=== PATIENT | female | born 1990 ===

== ENCOUNTER 2022-02-24 20:26 | Emergency (ER) | payer SELFPAY ==
[2022-02-25] MEDS ORDERED: SODIUM CHLORIDE 0.9% 1000 ML 1,000 ML IV ONE (06:38)
--- NOTE | 2022-02-25 07:09 | XRay Report ---
CHEST 1 VIEW 02/25/2022 5:51 AM INDICATION / CLINICAL INFORMATION: Syncope. COMPARISON: None available. FINDINGS: SUPPORT DEVICES: None. HEART / MEDIASTINUM: No significant abnormality. LUNGS / PLEURA: No significant pulmonary abnormality. No significant pleural effusion. No pneumothora x. ADDITIONAL FINDINGS: No significant additional findings. IMPRESSION: 1. No acute abnormality of the chest. Signer Name: Vaughn Fortune MD Signed: 02/25/2022 7:05 AM Workstation Name: [id number]
[2022-02-25 07:15] LABS: Basophils % (Auto) 0.3 % (0.0-1.8); Eosinophils # (Auto) 0.2 K/mm3 (0.0-0.4); Eosinophils % (Auto) 2.3 % (0.0-4.3); Hematocrit 33.2 % (30.3-42.9); Hemoglobin 11.7 gm/dl (10.1-14.3); Lymphocytes # (Auto) 2.9 K/mm3 (1.2-5.4); Lymphocytes % (Auto) 32.2 % (13.4-35.0); Mean Corpuscular HGB Conc 35 % (30-34); Mean Corpuscular Volume 88 fl (79-97); Monocytes # (Auto) 0.6 K/mm3 (0.0-0.8); Monocytes % (Auto) 6.3 % (0.0-7.3); Platelet Count 198 K/mm3 (140-440); Red Blood Count 3.77 M/mm3 (3.65-5.03); Red Cell Distribution Width 13.7 % (13.2-15.2)
[2022-02-25 07:32] LABS: Alanine Aminotransferase 28 units/L (7-56); Albumin 4.4 g/dL (3.9-5); Blood Urea Nitrogen 7 mg/dL (7-17); Calcium 9.2 mg/dL (8.4-10.2); Hemolysis Index 6
[2022-02-25 07:35] LABS: BUN/Creatinine Ratio 12; Creatine Kinase MB < 1.0 ng/mL (0.0-4.0)
[2022-02-25 08:16] VITALS: BP 101/70
--- NOTE | 2022-02-25 09:41 | Cat Scan Report ---
CT HEAD WITHOUT CONTRAST INDICATION / CLINICAL INFORMATION: syncope. TECHNIQUE: All CT scans at this location are performed using CT dose reduction for ALARA by means of automated exposure control. COMPARISON: None available. FINDINGS: HEMORRHAGE: None. EXTRA-AXIAL SPACES: Normal in size and morphology for the patient's age. VENTRICULAR SYSTEM: Normal in size and morphology for the patient's age. CEREBRAL PARENCHYMA: No significant abnormality. No acute territorial infarct. MIDLINE SHIFT / HERNIATION: None. CEREBELLUM / BRAINSTEM: No significant abnormality. ORBITS: Normal as visualized. SOFT TISSUES: No significant abnormality. SKULL: No significant abnormality. PARANASAL SINUSES / MASTOID AIR CELLS: Normal as visualized. ADDITIONAL FINDINGS: None. IMPRESSION: 1. No acute intracranial abnormality. Signer Name: Eriberto Simms MD Signed: 02/25/2022 9:37 AM Workstation Name: [id number]
[2022-02-25 10:45] LABS: Color,Urine Straw (Yellow)
[2022-02-25 10:57] LABS: Bacteria,Urine 1+ /HPF (Negative)
[2022-02-25 11:01] LABS: HCG Qualitative,Urine Negative (Negative)
--- NOTE | 2022-02-25 11:06 | Emergency Department Report ---
ED Syncope HPI - General Chief Complaint: Syncope Stated Complaint: DIZZINESS/FEELING FAINT Time Seen by Provider: 02/25/22 06:37 Source: patient Exam Limitations: language barrier - History of Present Illness Initial Comments: 31 YR OLD FEMALE PRESENTS TO ED W/ COMPLAINT OF DIZZINESS & FAINTIN SPELLS X 15 DAYS Timing/Prior Episodes: recent history Precipitating Factors: Positive: lightheadedness Context: activity Loss of Consciousness: no loss of consciousness Current Symptoms: back to normal, dizziness, lightheadedness - Related Data Allergies/Adverse Reactions: Allergies No Known Allergies Allergy (Unverified 02/24/22 21:08) ED Review of Systems ROS: Stated complaint: DIZZINESS/FEELING FAINT Other details as noted in HPI Constitutional: denies: chills, fever Eyes: denies: eye pain, eye discharge, vision change ENT: denies: ear pain, throat pain Respiratory: denies: cough, shortness of breath, wheezing Cardiovascular: denies: chest pain, palpitations Endocrine: no symptoms reported Gastrointestinal: denies: abdominal pain, nausea, diarrhea Genitourinary: denies: urgency, dysuria, discharge Musculoskeletal: denies: back pain, joint swelling, arthralgia Skin: denies: rash, lesions Neurological: denies: headache, weakness, paresthesias Psychiatric: denies: anxiety, depression Hematological/Lymphatic: denies: easy bleeding, easy bruising ED Past Medical Hx - Past Medical History Previous Medical History?: No Hx Hypertension: No - Surgical History Past Surgical History?: No ED Physical Exam - General Limitations: No Limitations, Language Barrier General appearance: alert, in no apparent distress - Head Head exam: Present: atraumatic, normocephalic - Eye Eye exam: Present: normal appearance - ENT ENT exam: Present: mucous membranes moist - Neck Neck exam: Present: normal inspection - Respiratory Respiratory exam: Present: normal lung sounds bilaterally. Absent: respiratory distress - Cardiovascular Cardiovascular Exam: Present: regular rate, normal rhythm. Absent: systolic murmur, diastolic murmur, rubs, gallop - GI/Abdominal GI/Abdominal exam: Present: soft, normal bowel sounds - Extremities Exam Extremities exam: Present: normal inspection - Back Exam Back exam: Present: normal inspection - Neurological Exam Neurological exam: Present: alert, oriented X3 - Psychiatric Psychiatric exam: Present: normal affect, normal mood - Skin Skin exam: Present: warm, dry, intact, normal color. Absent: rash ED Course Vital Signs 02/24/22 02/25/22 02/25/22 21:05 06:25 06:28 Temperature 98.2 F Pulse Rate 83 66 64 Respiratory 18 22 15 Rate Blood Pressure 103/68 Blood Pressure 123/84 [Right] O2 Sat by Pulse 97 100 98 Oximetry 02/25/22 02/25/22 02/25/22 06:31 06:45 07:01 Temperature Pulse Rate 68 62 61 Respiratory 15 13 21 Rate Blood Pressure 123/84 107/74 112/79 Blood Pressure [Right] O2 Sat by Pulse 100 100 100 Oximetry 02/25/22 02/25/22 02/25/22 07:15 07:31 07:45 Temperature Pulse Rate 61 55 L 60 Respiratory 18 18 14 Rate Blood Pressure 110/74 108/69 97/63 Blood Pressure [Right] O2 Sat by Pulse 100 99 99 Oximetry 02/25/22 02/25/22 08:00 08:01 Temperature 97.6 F Pulse Rate 60 Respiratory 17 Rate Blood Pressure 101/70 Blood Pressure [Right] O2 Sat by Pulse 98 99 Oximetry ED Medical Decision Making - Lab Data Result diagrams: 02/25/22 06:43 02/25/22 06:43 - EKG Data -: EKG Interpreted by [place] EKG shows normal: sinus rhythm Rate: normal - EKG Data Interpretation: no acute changes - Radiology Data Radiology results: report reviewed, image reviewed - Medical Decision Making work up negative ct head normal x ray clear fluids given UA is clear not Critical care attestation.: If time is entered above; I have spent that time in minutes in the direct care of this critically ill patient, excluding procedure time. ED Disposition Clinical Impression: Dizziness Disposition: 01 HOME / SELF CARE / HOMELESS Is pt being admited?: No Does the pt Need Aspirin: No Condition: Stable Instructions: Dizziness, Axza-cy-Ecyg, Dizziness Referrals: PRIMARY CARE, [Primary Care Provider] - 3-5 Days Print Language: MALIAN
[2022-02-25 12:14] LABS: Amphetamine Screen,Urine Negative; Benzodiazepines Screen,Urine Negative; Cannabinoid Screen,Urine Negative; Cocaine Screen,Urine Negative; Methadone Screen,Urine Negative; Opiate Screen,Urine Negative
--- NOTE | 2022-02-27 16:44 | Electrocardiograph Report ---
[facility] Test Date: 2022-02-24 Test Time: 21:10:35 Pat Name: KULWINDER BRISCOEDepartment: Room: Gender: F Progressive Care Unit Registered Nurse: REYNALDO : 1990 Requested By: AFRICA WILSON Order Number: [id number] Reading MD: Sampson Jimenez Measurements Intervals [place] Rate: 82 P: 33 TX: 126 QRS: 72 QRSD: 77 T: 51 QT: 338 QTc: 395 Interpretive Statements Sinus rhythm No previous ECG available for comparison Electronically Signed On 02-27-2022 16:44:28 EDT by Sampson Jimenez
== END 2022-02-25 11:48 | disposition home or self-care (01) ==
LOC: ED 20:26
DX: R42 Dizziness and giddiness (principal); Z79.899 Other long term (current) drug therapy
CPT/HCPCS: 36415; 70450; 71045; 80053; 80307; 81001; 81025; 82550; 82553; 83735; 84484; 85025; 93005; 96360; 99284; J7030